=== PATIENT | female | born 1930 | race Caucasian/White ===

== ENCOUNTER 2018-07-15 11:14 | Inpatient (IN) | payer MEDICARE, OTHER ==
[2018-07-15] VITALS (9 sets, daily range): BP systolic 98–129; BP diastolic 48–64
[~2018-07-15] VITALS: Ht 149.9 cm; Wt 52.6 kg
[~2018-07-15 11:14] MED LIST: AMLO5TAB4 PO; Amox Tr/Potassium Clavulanate PO; CALC-718 PO; ESCI10TA PO; LORA1TAB PO; MIRT15TA7 PO; ONDA4TAB11 PO; PANT40TA4 PO; VORI200T PO
--- NOTE | 2018-07-15 11:36 | NUR ---
88 Y/O FEMALE PLACED IN BED 4 C/O BEING MORE ALTERED THAN NORMAL
--- NOTE | 2018-07-15 11:45 | NUR ---
ACCU CHECK 142.
--- NOTE | 2018-07-15 11:49 | NUR ---
POSSIBLE GI BLEEDING.
--- NOTE | 2018-07-15 11:55 | NUR ---
H/L BEING PLACED. BLOOD BEING DRAWN.
[2018-07-15] MEDS ORDERED: IV NS 0.9% 1,000 ML BAG IV ONE (12:00)
--- NOTE | 2018-07-15 12:15 | NUR ---
PT BEING CLEANED SO WE CAN DETERMINE EXACTLY WHERE THE BLEEDING IS COMING FROM.
--- NOTE | 2018-07-15 12:24 | NUR ---
DR MUIR DETERMINED THAT THE BLEED IS A VAGINAL BLEED.
[2018-07-15 12:34] LABS: BASOPHILS % (AUTO) 0.2 % (0.0-2.0); EOSINOPHILS % (AUTO) 0.1 % (0.0-6.0); HEMATOCRIT 23 % (33-45); HEMOGLOBIN 7.5 g/dL (11.5-14.8); LYMPHOCYTES # (AUTO) 1.2 /CMM (0.8-4.8); MEAN CORPUSCULAR HGB CONC 33 g/dl (31.0-36.0); MEAN CORPUSCULAR VOLUME 77 fL (82-100); MONOCYTES # (AUTO) 0.8 /CMM (0.1-1.30); MONOCYTES % (AUTO) 5.6 % (2.0-12.0); NEUTROPHILS % (AUTO) 86.1 % (43.0-81.0); PLATELET COUNT (AUTO) 264 /CMM (150-450); RDW COEFFICIENT OF VARIATION 18.5 (11.5-15.0); RED BLOOD CELL COUNT(AUTO) 2.99 MIL/uL (4.0-5.2)
[2018-07-15 12:39] LABS: CARBON DIOXIDE 26 mmol/L (21-32); CHLORIDE 107 mmol/L (98-107); CREATININE 2.5 mg/dL (0.6-1.3); GLUCOSE 148 mg/dL (74-106); SODIUM SERUM 143 mmol/L (136-145); UREA NITROGEN, BLOOD 75 mg/dL (7-18)
[2018-07-15 12:51] LABS: ALANINE AMINOTRANSFERASE 17 U/L (12-78); ALBUMIN 2.2 g/dL (3.4-5.0); ALKALINE PHOSPHATASE 102 U/L (46-116); ASPARTATE AMINOTRANSFERASE 38 U/L (15-37); BILIRUBIN,DIRECT 0.2 mg/dL (0.0-0.2); BILIRUBIN,TOTAL 0.5 mg/dL (0.2-1.0)
[2018-07-15 12:56] LABS: B-TYPE NATRIURETIC PEPTIDE 37967 PG/ML (0-125)
--- NOTE | 2018-07-15 12:57 | NUR ---
Jaspal martinez in ED - 07/15/18 at 1259 by AVELINO TROPONINE 8.68 HEMATOCRIT 23 HGH 7.5
--- NOTE | 2018-07-15 12:59 | NUR ---
HEMOGLOBIN 7.5. HMCT 23, TROPONINE 8.68 DR MUIR INFORMED.
--- NOTE | 2018-07-15 13:02 | NUR ---
BLOOD ORDERED. ICU BED CALLED FOR.
[2018-07-15 13:09] LABS: INR 1.11 (0.87-1.13)
--- NOTE | 2018-07-15 13:25 | NUR ---
HAWKINS INSETED. URINE IS ALL DARK BLOOD.
[2018-07-15] MEDS ORDERED: CEFEPIME 1 GM VIAL ONE (13:30)
[2018-07-15] MEDS ORDERED: CEFEPIME 1 GM in IV D5W 50 ML IV ONE (13:30)
[2018-07-15] MEDS ORDERED: LINA145C PO (13:38)
[2018-07-15] MEDS ORDERED: CITA20TA16 PO (13:38)
[2018-07-15] MEDS ORDERED: POTA8TAB3 PO (13:38)
[2018-07-15] MEDS ORDERED: DOCU250C14 PO (13:38)
[2018-07-15] MEDS ORDERED: MEMA10TA PO (13:38)
[2018-07-15] MEDS ORDERED: FURO-144 PO (13:38)
[2018-07-15] MEDS ORDERED: IBUP-1955 PO (13:38)
[2018-07-15] MEDS ORDERED: METO-295 PO (13:38)
[2018-07-15] MEDS ORDERED: QUET100T PO (13:38)
--- NOTE | 2018-07-15 13:40 | NUR ---
UPDATED BED 264 ICU
--- NOTE | 2018-07-15 13:42 | NUR ---
CALLED CARDILOGIST, HOME THERAPY TEACHER WAS PAGED.
--- NOTE | 2018-07-15 14:02 | NUR ---
TYPE AND SCREEN DRAWN. PT TAKEN TO CT FOT CT OF ABDOMEN.
--- NOTE | 2018-07-15 14:43 | NUR ---
PT ADMITTED TO ICU 264. REPORT GIVEN TO ARCANDELARIA. PT ATENDING DR GUTIÉRREZ. MACHINE CELL TUBER IS DR. VELAZCO. PT READY FOR TRANSPORT TO UNIT.
[2018-07-15] MEDS ORDERED: AZITHROMYCIN 500 MG in IV D5W 250 ML IV ONE (15:00)
--- NOTE | 2018-07-15 15:03 | NUR ---
PT TRANSFERRED TO FLOOR.
[2018-07-15] MEDS ORDERED: ACETAMINOPHEN 325 MG TABLET PO PRN (16:00)
[2018-07-15] MEDS ORDERED: ZOLPIDEM TARTRATE 5 MG TABLET PO PRN (16:00)
[2018-07-15] MEDS ORDERED: ONDANSETRON HCL/PF 4 MG/2 ML VIAL IVP PRN (16:00)
[2018-07-15] MEDS ORDERED: MAGNESIUM HYDROXIDE 30 ML UDC PO PRN (16:00)
[2018-07-15] MEDS ORDERED: MAG HYDROX/AL HYDROX/SIMETH 30 ML UDC PO PRN (16:00)
[2018-07-15] MEDS ORDERED: Z GUARD REMEDY 2 OZ OINT TP PRN (16:00)
[2018-07-15] MEDS: DOCUSATE SODIUM 250 MG CAPSULE PO SCH (17:00)
[2018-07-15] MEDS: MEMANTINE HCL 5 MG TABLET PO SCH (17:00)
[2018-07-15 17:10] LABS: MAGNESIUM 2.4 mg/dL (1.8-2.4); PHOSPHORUS 3.4 mg/dL (2.5-4.9)
[2018-07-15 17:10] LABS: APPEARANCE,URINE TURBID (CLEAR); BILIRUBIN,URINE 3+ (NEGATIVE); BLOOD, URINE 3+ Ery/uL (NEGATIVE); COLOR,URINE BROWN (YELLOW); KETONES,URINE 1+ (NEGATIVE); LEUKOCYTE ESTERASE ,URINE 3+ (NEGATIVE); NITRITE, URINE POSITIVE (NEGATIVE); PH,URINE 8.5 (5.0-8.0); PROTEIN,URINE 3+ mg/dl (NEGATIVE); UGLUCOSE TRACE mg/dL (NEGATIVE)
[2018-07-15 17:12] LABS: BACTERIA,URINE 4+ /HPF (None Seen); RBC,URINE TOO NUMEROUS TO COUN /HPF (0-2); SQUAMOUS EPITHELIAL CELL,UR Few /HPF (None Seen); WBC,URINE 21-50 /HPF (0-3)
[2018-07-15 17:13] LABS: MUCUS,URINE Many /LPF (None Seen)
--- NOTE | 2018-07-15 17:30 | NUR ---
ICU/RN INITIAL NOTE: RECEIVED REPORT FROM MELISSA GARCIA. PT TRANSFERRED TO ROOM 264 FROM ER. PT RECEIVED ALTERED, FOLLOWING SOME SIMPLE COMMANDS. PT PLACED ON TELE. SINUS TACH 101, ON 2 LITERS NASAL CANULA, NO ACUTE DISTRESS NOTED AT THIS TIME. HAWKINS CATH PRESENT, HEMATURIA NOTED, MD AWARE. PIV'S PATENT AND INTACT, NO S/S OF INFECTION OR INFILTRATION NOTED. ALL NEEDS WILL BE ATTENDED TO, SAFETY MEASURES TAKEN, BED IN LOW POSITION, SIDE RAILS UP CALL LIGHT WITHIN REACH. PT TURNED AND REPOSITIONED. WOUND PHOTOS TAKEN.
--- NOTE | 2018-07-15 17:50 | NUR ---
ICU/RN: BLOOD TRANSFUSION STARTED, VITALS ASSESSED. NO S/S OF ADVERSE REACTIONS NOTED, TOLERATING WELL. WILL CONTINUE TO MONITOR AND ASSESS
[2018-07-15] MEDS: MIRTAZAPINE 15 MG TABLET PO SCH (18:00)
--- NOTE | 2018-07-15 19:30 | NUR ---
GENETIC COUNSELOR INITIAL NOTE RECEIVED PATIENT AROUSABLE, SLEEPY, RUSSIAN SPEAKING. NO S/S OF PAIN OR DISCOMFORT. NO RESPIRATORY DISTRESS NOTED, ON 2LPMO2 VIA NC. ON TELE MONITOR SR. WITH F/C PATENT, INTACT, DRAINING BY GRAVITY WITH DARK RED OUTPUT NOTED. PATIENT CURRENTLY HAS PRBC TRANSFUSING. HOB ELEVATED. SIDE RAILS UP AND LOCKED. BED KEPT AT LOWEST POSITION. CALL LIGHT KEPT WITHIN EASY REACH. WILL CONTINUE TO MONITOR.
--- NOTE | 2018-07-15 19:31 | NUR ---
ICU/RN ENDING NOTES,AM REPORT ENDORSED TO NIGHT NURSE FOR CONTINUATION OF CARE. PT RESTING IN BED COMFORTABLY. OPENS EYES, ANSWERS SIMPLE QUESTIONS AND FOLLOWS SIMPLE COMMANDS. GU[place]EMALAN SPEAKING ONLY. ALL NEEDS ATTENDED TO, SAFETY MEASURES TAKEN, BED IN LOW POSITION, SIDE RAILS UP, CALL LIGHT WITHIN REACH. BED ALARM ON. BLOOD TRANSFUSION ONGOING AT THIS TIME. PT TOLERATING WELL, NO ADVERSE REACTIONS NOTED. WILL CONTINUE CARE
[2018-07-15] MEDS ORDERED: LEVOFLOXACIN 750 MG /D5W 150ML 750 MG in PREMIX 1 EA IV ONE (20:00)
--- NOTE | 2018-07-15 20:00 | NUR ---
RESTAURANT AREA MANAGER NOTE S/P 1 UNIT PRBC, NO COMPLICATIONS NOTED. WILL CONTINUE TO MONITOR.
[2018-07-15] MEDS: IV NS 0.9% 1,000 ML IV PRN (20:29)
[2018-07-15] MEDS ORDERED: QUETIAPINE FUMARATE 100 MG TABLET PO SCH (22:00)
--- NOTE | 2018-07-15 22:48 | NUR ---
SPINNER HYDRAULIC NOTE RELAYED TO DR. MENDEZ TROPONIN LEVEL 10.637, PATIENT RESTING COMFORTABLY, SLEEPING, NO S/S OF PAIN OR DISCOMFORT AT THIS TIME. WITH ORDERS TO RELAY TO DIRECTOR OF PLANT OPERATIONS.
--- NOTE | 2018-07-15 22:53 | NUR ---
FUNERAL SERVICE PRACTITIONER/EMBALMER NOTE RELAYED TO DR. VELAZCO TROPONIN LEVEL 10.637 WITH NO NEW ORDERS.
[2018-07-16] VITALS (24 sets, daily range): BP systolic 108–142; BP diastolic 49–69
[2018-07-16 04:54] LABS: BASOPHILS % (AUTO) 0.1 % (0.0-2.0); EOSINOPHILS % (AUTO) 0.1 % (0.0-6.0); HEMATOCRIT 26 % (33-45); HEMOGLOBIN 8.1 g/dL (11.5-14.8); LYMPHOCYTES % (AUTO) 8.3 % (20.0-44.0); MEAN CORPUSCULAR HGB CONC 32 g/dl (31.0-36.0); MEAN CORPUSCULAR VOLUME 83 fL (82-100); MONOCYTES # (AUTO) 0.9 /CMM (0.1-1.30); MONOCYTES % (AUTO) 7.7 % (2.0-12.0); NEUTROPHILS % (AUTO) 83.8 % (43.0-81.0); PLATELET COUNT (AUTO) 212 /CMM (150-450); RDW COEFFICIENT OF VARIATION 18.6 (11.5-15.0); RED BLOOD CELL COUNT(AUTO) 3.09 MIL/uL (4.0-5.2); WHITE BLOOD COUNT (AUTO) 11.9 K/uL (4.3-11.0)
[2018-07-16 05:13] LABS: CALCIUM, SERUM 8.7 mg/dL (8.5-10.1); CARBON DIOXIDE 21 mmol/L (21-32); CHLORIDE 112 mmol/L (98-107); GLUCOSE 114 mg/dL (74-106); MAGNESIUM 2.2 mg/dL (1.8-2.4); POTASSIUM 3.8 mmol/L (3.5-5.1); SODIUM SERUM 143 mmol/L (136-145); UREA NITROGEN, BLOOD 73 mg/dL (7-18)
[2018-07-16 05:28] LABS: CHOLESTEROL 57 mg/dL (<200); LDL 29 mg/dL (0-99); THYROID STIMULATING HORMONE 1.398 uIU/mL (0.358-3.74); TRIGLYCERIDES 133 mg/dL (30-150)
[2018-07-16 05:46] LABS: HDL CHOLESTEROL < 10 mg/dL (40-60)
[2018-07-16 07:33] LABS: IRON, SERUM 60 ug/dl (50-175); TOTAL IRON BINDING CAPACITY 266 ug/dl (250-450)
--- NOTE | 2018-07-16 07:35 | NUR ---
DIRECTOR OF ORTHOPEDICS CLOSING NOTE NO SIGNIFICANT CHANGES OVERNIGHT. PATIENT STILL WITH HEMATURIA. NO RESPIRATORY DISTRESS NOTED. PATIENT SLEPT THROUGH THE NIGHT, AROUSABLE. NO S/S OF PAIN OR DISCOMFORT. F/C PATENT, INTACT, DRAINING BY GRAVITY. IVF RUNNING. HOB ELEVATED. KEPT CLEAN AND DRY. TURNED AND REPOSITIONED Q2 AND PRN. Z GUARD APPLIED NEEDED. CALL LIGHT KEPT WITHIN EASY REACH. CONTINUITY OF CARE ENDORSED TO AM NURSE.
[2018-07-16] MEDS ORDERED: Linaclotide (Linzess) 145 MCG PO SCH (09:00)
[2018-07-16] MEDS: DOCUSATE SODIUM 250 MG CAPSULE PO SCH ×2 (09:00→18:00)
[2018-07-16] MEDS ORDERED: CITALOPRAM HYDROBROMIDE 20 MG TABLET PO SCH (09:00)
[2018-07-16] MEDS: MEMANTINE HCL 5 MG TABLET PO SCH ×2 (09:00→18:00)
[2018-07-16] MEDS: CEFEPIME 2 GM in IV D5W 100 ML IV SCH (09:13)
[2018-07-16] MEDS: IV NS 0.9% 1,000 ML IV PRN (09:16)
[2018-07-16] MEDS: PANTOPRAZOLE 40 MG VIAL IV SCH (09:19)
--- NOTE | 2018-07-16 09:45 | NUR ---
NO ORDER FOR A UROLOGIST PHYSICIAN CONSULT FROM SOUMYA HUNT NP VERBAL READBACK DONE
--- NOTE | 2018-07-16 09:58 | NUR ---
SOUMYA HUNT UPDATED OF PATIENT'S CONDITION SHARED CT RESULTS WITH HIM, PER HIS ORDERS, ENEMA PRN
--- NOTE | 2018-07-16 10:00 | NUR ---
PER SOUMYA HUNT RESIDENTIAL PROGRAM COORDINATOR, CONTINUOUS BLADDER IRRIGATION. FLEET ENEMA PRN
--- NOTE | 2018-07-16 12:00 | NUR ---
PATIENT UNABLE TO FOLLOW COMMANDS. UNABLE TO DO SWALLOW EVALUATION.EXPLAINED TO PATIENT VIA FAMILY MEMBERS INSTRUCTIONS OF SWALLOWING. UNABLE TO FOLLOW COMMANDS
[2018-07-16] MEDS: NA PHOS,M-B/NA PHOS,DI-BA 1 EA ENEMA RC PRN ×2 (13:09→16:45)
--- NOTE | 2018-07-16 13:32 | NUR ---
UNABLE TO OBTAIN TUBING FOR THE CONTINUOS BLADDER IRRIGATION. NOT AVAILABLE AT [facility]. CONTACTED [facility] AVAILABLE THERE. NEENA, NURSING PULP REFINER OPERATOR NOTIFIED
--- NOTE | 2018-07-16 14:20 | NUR ---
[address] INSERTED VIA STERILE TECHNIQUE PER SOUMYA HUNT'S ORDERS. TUBING OBTAINED FOR BLADDER IRRIGATION
--- NOTE | 2018-07-16 14:59 | NUR ---
NO SIGNS OF ASPIRATION NOTED WITH CLEAR LIQUIDS AT THE MOMENT. ABLE TO DO SWALLOW EVAL. SUCTION AT BEDSIDE. ASPIRATION PRECAUTIONS IMPLEMENTED. WILL CONTINUE TO MONITOR PATIENT
--- NOTE | 2018-07-16 16:36 | NUR ---
PATIENT TRANSFERRED TO ROOM 252 WITH ALL BELONGINGS. PATIENT STABLE THROUGHOUT TRANSFER
--- NOTE | 2018-07-16 17:34 | NUR ---
PER SOUMYA HUNT, DNP PLACE AN ORDER FOR A PHYSICIAN CONSULT, DR HENRY, FOR HEMATURIA
[2018-07-16] MEDS: MIRTAZAPINE 15 MG TABLET PO SCH (18:00)
--- NOTE | 2018-07-16 18:21 | NUR ---
SWALLOW EVAL DONE AGAIN PRIOR TO DINNER THANIA. 1 SPOON OF WATER ATTEMPTED WITH THICKENER, PATIENT VOICE NOTED TO BE GURGLY, COUGHED AFTER SWALLOW. PATIENT PLACED ON NPO GAIN PER ORDERS
[2018-07-16 18:40] LABS: OCCULT BLOOD STOOL NEGATIVE (NEGATIVE)
--- NOTE | 2018-07-16 19:05 | NUR ---
REGIONAL TRANSPORTATION MANAGER NOTE PATIENT PRESENTS AOX1-2, SERBIAN SPEAKING, ON 2L O2 VIA NC, SR/ST, NO S/SX OF CARDIAC OR RESPIRATORY DISTRESS, 3 WAY F/C DRAINING TO GRAVITY RED TINGED URINE, PT IS NPO ON NS AT 75ML/HR IN LAC #18G, PATENT SITE CDI, FLUSHING WELL AND RAC #20G SL, PATENT, SITE CDI, FLUSHING WELL, NO S/SX OF PAIN NOTED, SKIN KEPT CLEAN AND DRY, SAFETY MAINTAINED AT ALL TIMES, BED IN LOW, LOCKED POSITION, WILL CONTINUE TO MONITOR FRO ANY CHANGES IN CONDITION.
[2018-07-16] MEDS: HYDROCODONE/APAP 5/325MG 1 EACH TABLET PO PRN (23:52)
[2018-07-17] VITALS (15 sets, daily range): BP systolic 112–158; BP diastolic 53–79
[2018-07-17] MEDS: IV NS 0.9% 1,000 ML IV PRN (01:46)
[2018-07-17 05:02] LABS: EOSINOPHILS % (AUTO) 0.2 % (0.0-6.0); HEMATOCRIT 29 % (33-45); HEMOGLOBIN 9.3 g/dL (11.5-14.8); LYMPHOCYTES # (AUTO) 1.6 /CMM (0.8-4.8); LYMPHOCYTES % (AUTO) 14.4 % (20.0-44.0); MEAN CORPUSCULAR HGB CONC 32 g/dl (31.0-36.0); MEAN CORPUSCULAR VOLUME 84 fL (82-100); MONOCYTES % (AUTO) 9.5 % (2.0-12.0); NEUTROPHILS # (AUTO) 8.2 /CMM (1.8-8.9); NEUTROPHILS % (AUTO) 75.9 % (43.0-81.0); PLATELET COUNT (AUTO) 245 /CMM (150-450); RDW COEFFICIENT OF VARIATION 18.8 (11.5-15.0); RED BLOOD CELL COUNT(AUTO) 3.47 MIL/uL (4.0-5.2); WHITE BLOOD COUNT (AUTO) 10.8 K/uL (4.3-11.0)
[2018-07-17 05:10] LABS: CALCIUM, SERUM 9.2 mg/dL (8.5-10.1); CARBON DIOXIDE 20 mmol/L (21-32); CHLORIDE 115 mmol/L (98-107); CREATININE 1.9 mg/dL (0.6-1.3); GLUCOSE 127 mg/dL (74-106); MAGNESIUM 2.3 mg/dL (1.8-2.4); PHOSPHORUS 3.7 mg/dL (2.5-4.9); POTASSIUM 3.7 mmol/L (3.5-5.1); SODIUM SERUM 147 mmol/L (136-145); UREA NITROGEN, BLOOD 71 mg/dL (7-18)
--- NOTE | 2018-07-17 07:33 | NUR ---
R%N ICU NOTE PATIENT PRESENTS AOX1-2, KYRGYZ SPEAKING, ON 2L O2 VIA NC, SR/ST, NO S/S OF RESPIRATORY DISTRESS, 3 WAY F/C DRAINING TO GRAVITY YELLOW NBA COLOR URINE, PT IS NPO ON NS AT 75ML/HR IN LAC #18G, PATENT SITE CDI, FLUSHING WELL AND RAC #20G SL, PATENT, SITE CDI, FLUSHING WELL,SKIN KEPT CLEAN AND DRY, SAFETY MAINTAINED AT ALL TIMES, BED IN LOW, LOCKED POSITION, WILL CONTINUE TO MONITOR . ON 2L NC OF O2 SAT , 96%, ON TELE MONITOR SR HR 88,
[2018-07-17] MEDS: PANTOPRAZOLE 40 MG VIAL IV SCH (08:11)
[2018-07-17] MEDS: CEFEPIME 2 GM in IV D5W 100 ML IV SCH (08:11)
[2018-07-17] MEDS: MEMANTINE HCL 5 MG TABLET PO SCH ×2 (08:11→16:59)
[2018-07-17] MEDS: DOCUSATE SODIUM 250 MG CAPSULE PO SCH ×2 (08:11→16:59)
--- NOTE | 2018-07-17 09:27 | NUR ---
ENGINE CLEANER NOTE UROLOGIST AT BEDSIDE FLUSHED [address] HAWKINS CATH STATED OK TO STOP BLADDER IRRIGATION
--- NOTE | 2018-07-17 10:00 | NUR ---
TILE LAYER NOTE REPORTED TO AUTO GARAGE MECHANIC THAT TROP YESTERDAY NUMBER 3 IS 9.472 AWARE THAT PER UROLOGY OK TO STOP BLADDER IRRIGATION
--- NOTE | 2018-07-17 10:00 | NUR ---
AUTOMATIC STACKER OPENING NOTES PT IS RECEIVED FROM ICU TO ROOM 110 WITH DIAGNOSIS OF SEPSIS PNEUMONIA.ALERT AND ORIENTED X1 WITH CONFUSION.ON TELE HR IS 75'S WITH SINUS RHYTHM.ON O2 2L VIA NC CONTINUOUSLY WITH O2 SAT 97%.NO SOB AND ACUTE DISTRESS NOTED.HAWKINS CATHETER IS IN PLACE WITH HEMATURIA,NBA COLOR URINE WHICH IS EXPECTED.PERIPHERAL IV LINE IS ON RIGHT AC G20 AND SALINE LOCK IS ON LEFT AC G18,SITE IS CLEAN,DRY AN INTACT.SKIN ASSESSMENT IS DONE.SAFETY IS MAINTAINED AT ALL TIME.BED IS IN LOW POSITION AND LOCKED.CALL LIGHT IS WITHIN REACH.FAMILY IS AT BEDSIDE.WILL CONTINUE TO MONITOR THE PT CLOSELY.
--- NOTE | 2018-07-17 10:14 | NUR ---
STEEL UNLOADER NOTE TRANSFER TO TELE UNIT BY ACLS PROTOCOL BY BED IN STABLE CONDITION, REPORT GIVEN TO MARY GARCIA
--- NOTE | 2018-07-17 14:37 | NUR ---
HEEL STIFFENER NOTES DR.PASCUAL DOOLEY SEEN THE PT AND SAID PT LOOKS BETTER,URINE IS GETTING IMPROVING AND KEEP PT ON NPO UNTIL SWALLOW STUDY IS DONE TOMORROW.
[2018-07-17] MEDS: IV D5/ 0.9% NACL 1,000 ML IV PRN (14:50)
[2018-07-17] MEDS ORDERED: DEXTROSE 50%-WATER 50 ML DISP.SYRIN IV PRN (15:00)
[2018-07-17] MEDS: MIRTAZAPINE 15 MG TABLET PO SCH (17:00)
[2018-07-17] MEDS: BLOOD SUGAR DIAGNOSTIC 1 EACH STRIP IN SCH ×2 (17:18→23:55)
[2018-07-17] MEDS: INSULIN REGULAR, HUMAN 100 UNIT/ML 3 ML VIAL SQ PRN (17:19)
--- NOTE | 2018-07-17 18:05 | NUR ---
ORNAMENTAL IRON WORKER HELPER CLOSING NOTES PT IS ON BED.ALERT/ORIENTED X1 WITH CONFUSION.ON 2L O2 VIA NC CONTINUOUSLY.TOLERATING WELL.PERIPHERAL IV LINE IS ON RIGHT AC G 20,SITE IS CLEAN,DRY AND INTACT.WILL ENDORSE TO DATABASE CONSULTANT RN TO MONITOR THE PT,URINE COLOR AND CONSISTENCY,SPUTUM COLLECTION AND OTHER CONTINUITY OF CARE.
--- NOTE | 2018-07-17 19:20 | NUR ---
TELE NOTES RECEIVED PT IN BED, ALERT TO SELF, FAMILY AT BEDSIDE. PT IN NO DISTRESS, BREATHING EVEN AND UNLABORED. RECEIVING 02 VIA NC @2LPM. NOTED PT WITH HAWKINS CATHETER IN PLACE, DRAINING WITH BLOODY URINE. PER AM SHIFT NURSE REPORT , MD AWARE OF HEMATURIA AND THAT COLOR IS GETTING BETTER. ALL PATIENT'S NEEDS ATTENDED TO. WILL CONTINUE TO MONITOR.
[2018-07-17] MEDS ORDERED: LEVOFLOXACIN 500 MG /D5W 100ML 500 MG in PREMIX 1 EA IV SCH (20:00)
[2018-07-17] MEDS: HYDROCODONE/APAP 5/325MG 1 EACH TABLET PO PRN (23:47)
[2018-07-18] VITALS: BP 134/53
[2018-07-18 04:00] VITALS: BP 140/57
[2018-07-18] MEDS: IV D5/ 0.9% NACL 1,000 ML IV PRN (05:17)
[2018-07-18 05:42] LABS: CALCIUM, SERUM 8.9 mg/dL (8.5-10.1); CARBON DIOXIDE 21 mmol/L (21-32); CREATININE 1.8 mg/dL (0.6-1.3); GLUCOSE 121 mg/dL (74-106); UREA NITROGEN, BLOOD 55 mg/dL (7-18)
[2018-07-18 05:46] LABS: CHLORIDE 126 mmol/L (98-107); SODIUM SERUM 158 mmol/L (136-145)
--- NOTE | 2018-07-18 05:51 | NUR ---
WAREHOUSE OPERATIONS MANAGER NOTES RECEIVED CALL FROM ADAM FROM LABORATORY WITH CRITICAL RESULT OF CRITICAL HIGH SODIUM = 158 AND CRITICAL HIGH CHLORIDE = 126. RADHA MCKENNA TRADE ANALYST. WAITING FOR CALL BACK.
[2018-07-18 05:58] LABS: EOSINOPHILS % (AUTO) 0.5 % (0.0-6.0); HEMATOCRIT 25 % (33-45); HEMOGLOBIN 8.1 g/dL (11.5-14.8); LYMPHOCYTES # (AUTO) 0.9 /CMM (0.8-4.8); LYMPHOCYTES % (AUTO) 8.9 % (20.0-44.0); MEAN CORPUSCULAR HGB CONC 32 g/dl (31.0-36.0); MEAN CORPUSCULAR VOLUME 84 fL (82-100); MONOCYTES # (AUTO) 0.7 /CMM (0.1-1.30); NEUTROPHILS # (AUTO) 8.1 /CMM (1.8-8.9); NEUTROPHILS % (AUTO) 83.6 % (43.0-81.0); PLATELET COUNT (AUTO) 225 /CMM (150-450); RDW COEFFICIENT OF VARIATION 18.3 (11.5-15.0); WHITE BLOOD COUNT (AUTO) 9.7 K/uL (4.3-11.0)
--- NOTE | 2018-07-18 06:14 | NUR ---
RN NOTE PAGED DR. JORDAN, WAITING FOR CALL BACK.
[2018-07-18] MEDS: BLOOD SUGAR DIAGNOSTIC 1 EACH STRIP IN SCH ×3 (06:28→17:53)
--- NOTE | 2018-07-18 06:29 | NUR ---
RN CLOSING NOTE PATIENT IN BED, AWAKE, CONFUSED, CONTINUES TO HAVE HEMATURIA. ALL PATIENT'S NEEDS ATTENDED TO THROUGHOUT THE SHIFT, NOTED WITH EPISODES OF COMBATIVE BEHAVIOR WHEN CARE IS BEING RENDERED. WAITING FOR CALL BACK REGARDING CRITICAL LAB RESULT. IV FLUIDS PUT ON HOLD AT THIS TIME. WILL ENDORSE TO AM SHIFT NURSE FOR CONTINUITY OF CARE.
--- NOTE | 2018-07-18 07:15 | NUR ---
SEED CUTTER OPENING NOTES RECEIVED PT ON BED.ALERT AND ORIENTED X1 WITH CONFUSION.ON TELE HR IS 85 WITH SINUS RHYTHM.ON 2 L O2 VIA NC CONTINUOUSLY.NO SOB AND ACUTE DISTRESS NOTED.IPERIPHERAL IV LINE IS ON RIGHT AC G 20,SITE IS CLEAN DRY AND INTACT.SAFETY IS MAINTAINED ALL THE TIME.BED IS IN LOW POSITION AND LOCKED.CALL LIGHT IS WITHIN REACH.WILL CONTINUE TO MONITOR THE PT CLOSELY.
[2018-07-18 08:00] VITALS: BP 158/69
--- NOTE | 2018-07-18 08:00 | NUR ---
INTERNAL MEDICINE NURSE PRACTITIONER NOTES SODIUM IS 158 AND CHLORIDE IS 126.DNP MARILEE DOOLEY ORDERED TO D/C IV D5NS AND START D5W @75ML/HR.NEW ORDERS NOTED AND CARRIED OUT.
[2018-07-18] MEDS: CEFEPIME 2 GM in IV D5W 100 ML IV SCH (08:47)
[2018-07-18] MEDS: MEMANTINE HCL 5 MG TABLET PO SCH ×2 (08:48→17:52)
[2018-07-18] MEDS: ASPIRIN EC 81 MG TABLET.DR PO SCH (08:48)
[2018-07-18] MEDS: DOCUSATE SODIUM 250 MG CAPSULE PO SCH ×2 (08:48→17:52)
[2018-07-18] MEDS: PANTOPRAZOLE 40 MG VIAL IV SCH (08:48)
[2018-07-18] MEDS: IV D5W 1,000 ML IV PRN (08:58)
--- NOTE | 2018-07-18 09:31 | NUR ---
SPECIAL DUTY NURSE NOTES CHANGED IV SITE TO RIGHT AND LEFT FA G20,SITE IS CLEAN DRY AND INTACT.
--- NOTE | 2018-07-18 10:31 | NUR ---
WOUND CARE CONSULT WOUND CARE RECEIVED CONSULT FOR LOW NATALYA. WOUND CARE WILL DEFER CONSULT TO PLASTIC SURGICAL TEAM WHO ARE CURRENTLY FOLLOWING PATIENT. PATIENT WITH A NATALYA AT 11, ALL PRESSURE ULCER PREVENTION MEASURES ARE CURRENTLY NOTED TO BE IN PLACE. WILL SEE PRN.
--- NOTE | 2018-07-18 11:50 | NUR ---
CODER OPERATOR NOTES SPEECH THERAPIST ALEKS EVALUATED THE PT,STILL PT HAS DIFFICULT TO SWALLOW.SHE ORDERED TO PLACE PT ON NPO STILL AND REEVALUATE PT IN AM.FAMILY MADE AWARE.
[2018-07-18 12:00] VITALS: BP 160/63
[2018-07-18] MEDS: CEFTRIAXONE 1 G in IV D5W 50 ML IV SCH (15:21)
[2018-07-18] MEDS: METOPROLOL TARTRATE 25 MG TABLET PO SCH ×3 (15:28→20:56)
[2018-07-18 16:00] VITALS: BP 159/38
[2018-07-18] MEDS: MIRTAZAPINE 15 MG TABLET PO SCH (17:53)
--- NOTE | 2018-07-18 19:20 | NUR ---
WEIGHT LOSS PHYSICIAN OPENING NOTE Patient was seen lying in bed AAOx1 only, breathing on 2L O2 NC with no SOB, and no signs of acute distress. Telemonitor shows sinus rhythm in the 80s. SL IV in the right FA is intact and patent. D5 is running at 75ml/hr through the left FA with no signs of leaking or infiltration. Flores catheter is draining red urine; per day shift RN, MD is aware and states that hematuria is improving. Bed is low/locked, two side rails up, call arciniega within reach. Patient currently appears comfortable. Will continue to monitor.
--- NOTE | 2018-07-18 19:46 | NUR ---
TRACTOR ENGINE ASSEMBLER CLOSING NOTES PT IS ON BED.SLEEPING.ENDORSED TO RESEARCH HYDROLOGIST RN TO FOLLOW UP THE CT SCAN WITH FAMILY AND CONTINUITY OF CARE.
[2018-07-18 20:00] VITALS: BP 143/98
--- NOTE | 2018-07-18 20:56 | NUR ---
FISHING GEAR MECHANIC NOTE - Non-Admin Med, Pt refused Attempted to administer PO metoprolol, crushed med in applesauce, but patient refused to take medication. She spit out the medication and became combative. Medication was discarded in appropriate waste bin.
[2018-07-18] MEDS ORDERED: ATORVASTATIN 10 MG TABLET PO SCH (22:00)
[2018-07-19] VITALS: BP 134/75
[2018-07-19] MEDS: BLOOD SUGAR DIAGNOSTIC 1 EACH STRIP IN SCH ×5 (01:08→23:46)
[2018-07-19] MEDS: HYDROCODONE/APAP 5/325MG 1 EACH TABLET PO PRN (01:09)
--- NOTE | 2018-07-19 01:09 | NUR ---
VENEER GLUE JOINTER FEEDBACK NOTE - Non-Admin med, pt refused I attempted to give patient PO Strang crushed in applesauce because patient was showing signs of discomfort such as moaning, facial grimacing, restlessness, and elevated HR. Patient refused to take medication and became combative. Medication was discarded in appropriate medical waste bin.
[2018-07-19] MEDS: IV D5W 1,000 ML IV PRN ×2 (02:00→12:28)
[2018-07-19 04:00] VITALS: BP 117/60
[2018-07-19 05:47] LABS: BASOPHILS % (AUTO) 0.1 % (0.0-2.0); EOSINOPHILS % (AUTO) 2.5 % (0.0-6.0); HEMATOCRIT 24 % (33-45); HEMOGLOBIN 7.5 g/dL (11.5-14.8); LYMPHOCYTES # (AUTO) 1.2 /CMM (0.8-4.8); LYMPHOCYTES % (AUTO) 13.5 % (20.0-44.0); MEAN CORPUSCULAR HGB CONC 32 g/dl (31.0-36.0); MEAN CORPUSCULAR VOLUME 83 fL (82-100); MONOCYTES # (AUTO) 0.8 /CMM (0.1-1.30); MONOCYTES % (AUTO) 8.6 % (2.0-12.0); NEUTROPHILS # (AUTO) 6.9 /CMM (1.8-8.9); NEUTROPHILS % (AUTO) 75.3 % (43.0-81.0); PLATELET COUNT (AUTO) 202 /CMM (150-450); RDW COEFFICIENT OF VARIATION 18.5 (11.5-15.0); RED BLOOD CELL COUNT(AUTO) 2.83 MIL/uL (4.0-5.2); WHITE BLOOD COUNT (AUTO) 9.2 K/uL (4.3-11.0)
[2018-07-19 05:58] LABS: CALCIUM, SERUM 8.3 mg/dL (8.5-10.1); CARBON DIOXIDE 20 mmol/L (21-32); CHLORIDE 120 mmol/L (98-107); CREATININE 1.6 mg/dL (0.6-1.3); GLUCOSE 126 mg/dL (74-106); POTASSIUM 2.9 mmol/L (3.5-5.1); SODIUM SERUM 152 mmol/L (136-145); UREA NITROGEN, BLOOD 50 mg/dL (7-18)
--- NOTE | 2018-07-19 07:33 | NUR ---
ENGINEERING MGR CLOSING NOTE Patient was seen lying in bed AAOx1 only, breathing on 2L O2 NC with no SOB, and no signs of acute distress. Telemonitor shows sinus rhythm in the 80s. D5 is running at 75ml/hr through the right FA with no signs of leaking or infiltration. Flores catheter is draining red urine (265 ml this shift). Bed is low/locked, two side rails up, call arciniega within reach. Patient care endorsed to day shift nurse.
[2018-07-19 08:00] VITALS: BP 139/62
[2018-07-19] MEDS: ASPIRIN EC 81 MG TABLET.DR PO SCH (08:15)
[2018-07-19] MEDS: PANTOPRAZOLE 40 MG VIAL IV SCH (08:15)
[2018-07-19] MEDS: DOCUSATE SODIUM 250 MG CAPSULE PO SCH ×2 (08:15→16:13)
[2018-07-19] MEDS: MEMANTINE HCL 5 MG TABLET PO SCH ×2 (08:15→16:13)
[2018-07-19] MEDS: METOPROLOL TARTRATE 25 MG TABLET PO SCH ×2 (08:16→20:33)
[2018-07-19] MEDS: POTASSIUM CL. PREMIX PERIPHER. 50 ML IV SCH ×5 (10:09→14:37)
[2018-07-19 12:00] VITALS: BP 139/68
[2018-07-19] MEDS: CEFTRIAXONE 1 G in IV D5W 50 ML IV SCH (13:35)
[2018-07-19 16:00] VITALS: BP 129/58
[2018-07-19] MEDS: MIRTAZAPINE 15 MG TABLET PO SCH (17:42)
--- NOTE | 2018-07-19 18:00 | NUR ---
Tele/RN - Notes Patient is alert to self, no evidence of resp. distress, no s/s of pain, tele shows SR. IVF D5 at 75 ml/hr infusing well on the RFA with no signs of infiltration, saline lock on the LFA is flushing well. Flores catheter in place for strict I&O monitoring, still noted with mild hematuria, no need for bladder irrigation per Dr. Moody (Urologist). Potassium repleted with KCl 50 meq IVPB. All needs attended and met. Granddaughter Ani at bedside updated on the plan of care. Fall and aspiration precautions maintained. Will continue with current medical management.
--- NOTE | 2018-07-19 19:40 | NUR ---
LOCAL HAZMAT DRIVER NOTES RECEIVED REPORT FROM INOCENCIA GARCIA. PATIENT A/A/O X1 TO SELF & W/ CONFUSION. BREATHING EVEN & UNLABORED, TOLERATING O2 @ 2LPM VIA NC. ON TELE W/ SINUS RHYTHM, HR 78. NO S/S OF SOB OR DIFFICULTY BREATHING. RIGHT FOREARM IV INTACT & PATENT W/ DRESSING CDI & IVF D5 INFUSING WELL @ 75 ML/HR. HAWKINS CATH DRAINING YELLOW URINE W/ SOME HEMATURIA NOTED. NO S/S OF PAIN OR DISCOMFORT @ THIS TIME. TURNED & REPOSITIONED FOR COMFORT. WILL CONTINUE TO MONITOR.
[2018-07-19 20:00] VITALS: BP 129/55
[2018-07-19] MEDS: INSULIN REGULAR, HUMAN 100 UNIT/ML 3 ML VIAL SQ PRN (23:46)
[2018-07-20] VITALS: BP 118/58
[2018-07-20 04:00] VITALS: BP 124/55
[2018-07-20] MEDS: IV D5W 1,000 ML IV PRN ×2 (04:06→16:21)
[2018-07-20] MEDS: BLOOD SUGAR DIAGNOSTIC 1 EACH STRIP IN SCH ×4 (05:40→22:54)
[2018-07-20] MEDS: INSULIN REGULAR, HUMAN 100 UNIT/ML 3 ML VIAL SQ PRN ×2 (05:41→22:55)
[2018-07-20 06:28] LABS: BASOPHILS % (AUTO) 0.3 % (0.0-2.0); HEMATOCRIT 23 % (33-45); HEMOGLOBIN 7.4 g/dL (11.5-14.8); LYMPHOCYTES # (AUTO) 1.7 /CMM (0.8-4.8); LYMPHOCYTES % (AUTO) 25.6 % (20.0-44.0); MEAN CORPUSCULAR HGB CONC 32 g/dl (31.0-36.0); MEAN CORPUSCULAR VOLUME 85 fL (82-100); MONOCYTES # (AUTO) 0.5 /CMM (0.1-1.30); MONOCYTES % (AUTO) 6.9 % (2.0-12.0); NEUTROPHILS # (AUTO) 4.2 /CMM (1.8-8.9); NEUTROPHILS % (AUTO) 61.2 % (43.0-81.0); PLATELET COUNT (AUTO) 181 /CMM (150-450); RED BLOOD CELL COUNT(AUTO) 2.75 MIL/uL (4.0-5.2); WHITE BLOOD COUNT (AUTO) 6.8 K/uL (4.3-11.0)
[2018-07-20 06:39] LABS: CALCIUM, SERUM 8.3 mg/dL (8.5-10.1); CARBON DIOXIDE 20 mmol/L (21-32); CHLORIDE 114 mmol/L (98-107); CREATININE 1.5 mg/dL (0.6-1.3); GLUCOSE 108 mg/dL (74-106); MAGNESIUM 1.8 mg/dL (1.8-2.4); PHOSPHORUS 1.7 mg/dL (2.5-4.9); POTASSIUM 3.2 mmol/L (3.5-5.1); SODIUM SERUM 145 mmol/L (136-145); UREA NITROGEN, BLOOD 38 mg/dL (7-18)
--- NOTE | 2018-07-20 07:20 | NUR ---
SERVER MANAGER NOTE RECEIVED PATIENT IN STABLE CONDITION, PERIODS OF AGITATION NOTED. NO RESPIRATORY DISTRESS, ON O2 AT 2LPM. D5 INFUSING ORDERED. HEAD OF BED ELEVATED, BED IN LOW AND LOCKED POSITION, CALL LIGHT WITHIN REACH, WILL CONTINUE TO MONITOR CLOSELY.
[2018-07-20 08:00] VITALS: BP 131/51
[2018-07-20] MEDS: DOCUSATE SODIUM 250 MG CAPSULE PO SCH ×2 (10:17→16:18)
[2018-07-20] MEDS: ASPIRIN EC 81 MG TABLET.DR PO SCH (10:18)
[2018-07-20] MEDS: PANTOPRAZOLE 40 MG VIAL IV SCH (10:18)
[2018-07-20] MEDS: MEMANTINE HCL 5 MG TABLET PO SCH ×2 (10:18→16:18)
[2018-07-20] MEDS: METOPROLOL TARTRATE 25 MG TABLET PO SCH ×2 (10:20→20:59)
[2018-07-20] MEDS ORDERED: K PHOS NEUTRAL 250 MG TABLET PO ONE (11:30)
[2018-07-20 12:00] VITALS: BP 139/52
[2018-07-20] MEDS: POTASSIUM CHLORIDE 20 MEQ TAB.PRT.SR PO SCH ×2 (12:48→13:48)
[2018-07-20] MEDS: CEFTRIAXONE 1 G in IV D5W 50 ML IV SCH (15:35)
[2018-07-20] MEDS: HYDROCODONE/APAP 5/325MG 1 EACH TABLET PO PRN (15:36)
[2018-07-20 16:00] VITALS: BP 121/54
[2018-07-20] MEDS: MIRTAZAPINE 15 MG TABLET PO SCH (17:23)
--- NOTE | 2018-07-20 19:43 | NUR ---
CALCULATING MACHINE OPERATOR NOTE PATIENT RESTING IN BED IN STABLE CONDITION, NO RESPIRATORY DISTRESS NOTED. ON O2 VIA NASAL CANNULA AT 2LPM. D5 INFUSING ORDERED. BED LOW AND LOCKED, CALL LIGHT WITHIN REACH, ENDORSED TO PARACHUTE/COMBATANT DIVER OFFICER NURSE FOR CONTINUITY OF CARE.
[2018-07-20 20:00] VITALS: BP 126/60
[2018-07-21] VITALS (7 sets, daily range): BP systolic 91–133; BP diastolic 49–66
[2018-07-21] MEDS: IV D5W 1,000 ML IV PRN (05:24)
[2018-07-21 06:20] LABS: BASOPHILS % (AUTO) 0.3 % (0.0-2.0); EOSINOPHILS % (AUTO) 7.8 % (0.0-6.0); HEMATOCRIT 22 % (33-45); HEMOGLOBIN 7.3 g/dL (11.5-14.8); LYMPHOCYTES # (AUTO) 1.6 /CMM (0.8-4.8); LYMPHOCYTES % (AUTO) 24.9 % (20.0-44.0); MEAN CORPUSCULAR HGB CONC 33 g/dl (31.0-36.0); MEAN CORPUSCULAR VOLUME 86 fL (82-100); MONOCYTES # (AUTO) 0.4 /CMM (0.1-1.30); MONOCYTES % (AUTO) 5.7 % (2.0-12.0); NEUTROPHILS # (AUTO) 3.9 /CMM (1.8-8.9); NEUTROPHILS % (AUTO) 61.3 % (43.0-81.0); PLATELET COUNT (AUTO) 196 /CMM (150-450); RDW COEFFICIENT OF VARIATION 19.3 (11.5-15.0); RED BLOOD CELL COUNT(AUTO) 2.57 MIL/uL (4.0-5.2); WHITE BLOOD COUNT (AUTO) 6.4 K/uL (4.3-11.0)
[2018-07-21 06:21] LABS: CALCIUM, SERUM 7.5 mg/dL (8.5-10.1); CARBON DIOXIDE 19 mmol/L (21-32); CHLORIDE 112 mmol/L (98-107); CREATININE 1.3 mg/dL (0.6-1.3); GLUCOSE 109 mg/dL (74-106); MAGNESIUM 1.6 mg/dL (1.8-2.4); PHOSPHORUS 2.3 mg/dL (2.5-4.9); POTASSIUM 3.4 mmol/L (3.5-5.1); SODIUM SERUM 141 mmol/L (136-145); UREA NITROGEN, BLOOD 26 mg/dL (7-18)
--- NOTE | 2018-07-21 07:10 | NUR ---
ALL SOURCE INTELLIGENCE ANALYST NOTE RECEIVED PATIENT IN STABLE CONDITION, NO RESPIRATORY DISTRESS NOTED, ON O2 VIA NASAL CANNULA AT 2LPM. SINUS RHYTHM WITH A HEART RATE OF 77 ON SAIL FINISHER MACHINE. IV SITE ON LEFT HAND INTACT INFUSING D5W ORDERED. SIDE RAILS UP, BED IN LOCKED LOW POSITION, CALL LIGHT WITHIN REACH, WILL CONTINUE TO MONITOR CLOSELY.
[2018-07-21] MEDS: ASPIRIN EC 81 MG TABLET.DR PO SCH (09:30)
[2018-07-21] MEDS: PANTOPRAZOLE 40 MG VIAL IV SCH (09:30)
[2018-07-21] MEDS: MEMANTINE HCL 5 MG TABLET PO SCH ×2 (09:30→16:23)
[2018-07-21] MEDS: METOPROLOL TARTRATE 25 MG TABLET PO SCH ×2 (09:31→21:13)
[2018-07-21] MEDS: BLOOD SUGAR DIAGNOSTIC 1 EACH STRIP IN SCH ×4 (09:35→21:40)
[2018-07-21] MEDS: DOCUSATE SODIUM 250 MG CAPSULE PO SCH ×2 (09:35→16:23)
[2018-07-21] MEDS ORDERED: POTASSIUM CHLORIDE 20 MEQ TAB.PRT.SR PO SCH (10:00)
[2018-07-21] MEDS ORDERED: K PHOS NEUTRAL 250 MG TABLET PO ONE (11:00)
--- NOTE | 2018-07-21 11:15 | NUR ---
JET BLADE POLISHER NOTE PATIENT NOTED WITH INCREASING POOR APPETITE, REFUSING TO EAT. NOTIFIED GRANDDAUGHTER ANI WHO AGREED TO COME AND BRING FOOD AND TRY TO FEED PATIENT. NOTIFIED ROUNDING DOCTOR ABOUT PATIENT'S POOR APPETITE AND REFUSAL TO EAT WELL. WILL CONTINUE TO MONITOR AND FREQUENTLY OFFER SNACKS TO PATIENT.
[2018-07-21] MEDS: Magnesium 1GM/D5W 100ML PREMIX 100 ML IV SCH ×2 (11:54→13:03)
[2018-07-21] MEDS: ENSURE ENLIVE CHOC 237 ML CAN PO SCH ×2 (13:21→16:29)
[2018-07-21] MEDS: CEFTRIAXONE 1 G in IV D5W 50 ML IV SCH (15:04)
[2018-07-21] MEDS: MIRTAZAPINE 15 MG TABLET PO SCH (17:51)
--- NOTE | 2018-07-21 19:30 | NUR ---
BINDERY MACHINE SETTER NOTES RECEIVED ON BED SLEEPING,AROUSABLE TO VERBAL STIMULI.BREATHING NON LABORED.O2 IN USED AT 2L/NC TO KEEP O2 SAT ABOVE 90%.ON IVF D5W AT 60ML/HR RATE INFUSING VIA IV PUMP ON RIGHT HAND,SITE PATENT.WITH HAWKINS CATH IN PLACE DRAINING YELLOWISH OUTPUT.SR 78 ON TELE MONITOR.CALL LIGHT IN REACH.WILL CONTINUE TO MONITOR STATUS.
--- NOTE | 2018-07-21 20:04 | NUR ---
AERONAUTICAL ENGINEERING TEACHER NOTE PATIENT RESTING IN BED IN STABLE CONDITION. IV SITE ON RIGHT HAND INTACT INFUSING D5W AT 60ML/HR. HAWKINS CATHETER DRAINING TO GRAVITY CLEAR YELLOW URINE. SIDE RAILS UP, HEAD OF BED ELEVATED, CALL LIGHT WITHIN REACH, BED LOW AND LOCKED, ENDORSED TO APRON WORKER NURSE FOR CONTINUITY OF CARE.
--- NOTE | 2018-07-21 20:34 | NUR ---
MIRZA YEN BP 91/49 AT 1999,WILIAM AT 2030 WAS 133/49 Addendum: 07/21/18 at 2034 by TANIKA ASHBY RN Amended: Links added.
--- NOTE | 2018-07-21 22:02 | NUR ---
INSTRUCTIONAL TECHNOLOGY SPECIALIST NOTES ACCU-CHECK BLOOD SUGAR CHECK 129,NO INSULIN COVERAGE.
[2018-07-22] VITALS: BP 110/50
[2018-07-22] MEDS: IV D5W 1,000 ML IV PRN (02:15)
[2018-07-22 04:00] VITALS: BP 106/55
[2018-07-22 06:28] LABS: BASOPHILS % (AUTO) 0.8 % (0.0-2.0); EOSINOPHILS % (AUTO) 8.3 % (0.0-6.0); HEMATOCRIT 24 % (33-45); HEMOGLOBIN 7.8 g/dL (11.5-14.8); LYMPHOCYTES # (AUTO) 1.4 /CMM (0.8-4.8); LYMPHOCYTES % (AUTO) 30.3 % (20.0-44.0); MEAN CORPUSCULAR HGB CONC 33 g/dl (31.0-36.0); MEAN CORPUSCULAR VOLUME 86 fL (82-100); MONOCYTES # (AUTO) 0.4 /CMM (0.1-1.30); MONOCYTES % (AUTO) 8.7 % (2.0-12.0); NEUTROPHILS # (AUTO) 2.5 /CMM (1.8-8.9); NEUTROPHILS % (AUTO) 51.9 % (43.0-81.0); PLATELET COUNT (AUTO) 157 /CMM (150-450); RED BLOOD CELL COUNT(AUTO) 2.75 MIL/uL (4.0-5.2); WHITE BLOOD COUNT (AUTO) 4.7 K/uL (4.3-11.0)
--- NOTE | 2018-07-22 06:28 | NUR ---
ELECTRICAL CONTROLS DESIGNER NOTES SLEPT WELL AT NIGHT,REMAINS CONFUSED,NO ACTIVE BLEEDING,WITH YELLOWISH URINE OUTPUT.FOR D/C PLANNING TO BOARD AND CARE VS SNF.CASE MANAGEMENT FOR PLACEMENT.IN NO ACUTE DISTRESS.WILL ENDORSE TO DAY NURSE FOR DARIAN.
[2018-07-22 06:38] LABS: CALCIUM, SERUM 7.5 mg/dL (8.5-10.1); CARBON DIOXIDE 22 mmol/L (21-32); CHLORIDE 110 mmol/L (98-107); CREATININE 1.2 mg/dL (0.6-1.3); GLUCOSE 97 mg/dL (74-106); MAGNESIUM 2.1 mg/dL (1.8-2.4); PHOSPHORUS 2.5 mg/dL (2.5-4.9); POTASSIUM 3.3 mmol/L (3.5-5.1); SODIUM SERUM 141 mmol/L (136-145); UREA NITROGEN, BLOOD 23 mg/dL (7-18)
[2018-07-22 08:00] VITALS: BP 130/51
[2018-07-22] MEDS: BLOOD SUGAR DIAGNOSTIC 1 EACH STRIP IN SCH ×2 (08:32→12:18)
[2018-07-22 08:33] VITALS: BP 130/51
[2018-07-22] MEDS: ASPIRIN EC 81 MG TABLET.DR PO SCH (08:33)
[2018-07-22] MEDS: PANTOPRAZOLE 40 MG VIAL IV SCH (08:33)
[2018-07-22] MEDS: METOPROLOL TARTRATE 25 MG TABLET PO SCH (08:33)
[2018-07-22] MEDS: DOCUSATE SODIUM 250 MG CAPSULE PO SCH (08:33)
[2018-07-22] MEDS: ENSURE ENLIVE CHOC 237 ML CAN PO SCH ×2 (08:33→12:00)
[2018-07-22] MEDS: MEMANTINE HCL 5 MG TABLET PO SCH (08:33)
[2018-07-22] MEDS ORDERED: POTASSIUM CHLORIDE 20 MEQ POWDER PACKET NG SCH (10:30)
== END 2018-07-22 17:20 | disposition home or self-care (01) | DRG 871 ==
LOC: ER 11:19 → ICU 13:47 → TELE1 18:02 → ICU 18:20 → TELE1 07-17 10:02
PROVIDERS: ADMIT Hospitalist; ATTEND Hospitalist
PROC: 30233P1 Transfusion of Nonautologous Frozen Red Cells into Peripheral Vein, Percutaneous Approach (ICD-10-PCS; principal; 2018-07-15)
DX: A41.9 Sepsis, unspecified organism (principal); G93.41 Metabolic encephalopathy; J18.9 Pneumonia, unspecified organism; N17.0 Acute kidney failure with tubular necrosis; I21.A1 Myocardial infarction type 2; E87.0 Hyperosmolality and hypernatremia; N39.0 Urinary tract infection, site not specified; K76.6 Portal hypertension; G81.90 Hemiplegia, unspecified affecting unspecified side; K74.60 Unspecified cirrhosis of liver; K57.30 Diverticulosis of large intestine without perforation or abscess without bleeding; R31.9 Hematuria, unspecified; F03.90 Unspecified dementia, unspecified severity, without behavioral disturbance, psychotic disturbance, mood disturbance, and anxiety; M81.0 Age-related osteoporosis without current pathological fracture; F41.9 Anxiety disorder, unspecified; I10 Essential (primary) hypertension; I25.10 Atherosclerotic heart disease of native coronary artery without angina pectoris; Z22.322 Carrier or suspected carrier of Methicillin resistant Staphylococcus aureus; L89.140 Pressure ulcer of left lower back, unstageable; B96.20 Unspecified Escherichia coli [E. coli] as the cause of diseases classified elsewhere; D64.9 Anemia, unspecified; E87.6 Hypokalemia; E83.51 Hypocalcemia; E83.39 Other disorders of phosphorus metabolism; E83.42 Hypomagnesemia; I35.0 Nonrheumatic aortic (valve) stenosis; I34.0 Nonrheumatic mitral (valve) insufficiency; R31.0 Gross hematuria; T50.1X5A Adverse effect of loop [high-ceiling] diuretics, initial encounter; Z74.01 Bed confinement status; J32.9 Chronic sinusitis, unspecified; D72.829 Elevated white blood cell count, unspecified; Y92.89 Other specified places as the place of occurrence of the external cause
CPT/HCPCS: 36415; 70450-TC; 71045-TC; 80048-TC; 80061-TC; 80076-TC; 81000-TC; 82272-TC; 82962-TC; 83540-TC; 83605-TC; 83735-TC; 83880; 84100-TC; 84443-TC; 84484-TC; 85025-TC; 85730-TC; 86850-TC; 86921-TC; 87040-TC; 87081-TC; 87086-TC; 87186-TC; 92526; 92611-TC; 93307-TC; 97110-TC; 97530-TC; A4216; A4217; A4606; A6402; C9113; G0378; J0456; J0692; J0696; J1815; J1956; J3475; J3480; J3490; J7030; J7042; J7050; J7060; J7070; P9016-BL; Z7610